=== PATIENT | female | born 1965 | race Caucasian/White ===

== ENCOUNTER 2025-04-06 16:21 | Emergency (ER) | payer BC, SELFPAY ==
--- OUTSIDE RECORDS SUMMARY | 2022-01-13 23:30 | XMS_ITS | Continuity of Care Document ---
Author Organization [facility] Address [address] [address] [place] [address] Phone Care Team Providers Care [place] Measurer Name Role Phone No Information Unavailable Unavailable Allergies, Adverse Reactions, Alerts Substance Reaction Status Criticality Sulfa (Sulfonamide Antibiotics) hives Active No Information Medications Medication Instructions Dosage Effective Dates (start - stop) Status Comments Benadryl 25 mg capsule take 1 capsule by oral route every 4 - 6 hours as needed 25 MG - Active Detrol LA 4 mg 24 hr Cap take 1 capsule (4MG) by oral route every day - Active Procedures Procedure Date Adenoma(s), Other Neoplasm Detected Duri ng Screen Colonoscopy Flex; W/remov Les- 17 Level Iv-surg Path Gross/micro 17 Colonoscopy Flex; Dx (sep Pro) 11 Advance Directives Directive Yes / No Effective Date File Name No Information Encounters Encounter Description Practice Location Reason(s) For Visit Diagnoses Date Provider Providers Copied on Encounter [facility], [address] [address], [place], [id number], tel:[phone] No Information Jan- 2 No Information [facility], [address] [address], [place], [id number], tel:[phone] [facility] Benign colon polypPersonal history of colonic polypsEncounter for screening for malignant neoplasm of colonBenign neoplasm of sigmoid colonPersonal history of colonic polyps 7 Ephraim Knapp. [address], [id number], [place]. tel:[phone] Referring Provider: Aline Knott MD, [address] [place], [address]. tel:[phone] [facility], [address] [address], [place], [place], [id number], tel:[phone] [facility] Personal History Colon PolypsColon Cancer ScreeningHemorr hoids NosPersonal History Colon Polyps Jaden Davis. [address], [id number], [place]. tel:[phone] Family History Family Member Type Diagnosis Age At Onset Mother Problem (finding) Alive and well Father Problem (finding) Alive and well Sister Problem (finding) Alive and well Brother Problem (finding) Alive and well Father Problem (finding) prostate cancer Payers Payer name Insurance type Covered libertarian ID Authoriza tion(s) No Information Social History Type Description Quantity Date Captured Comments Sex Female Smoking Status No Information Chief Complaint And Reason For Visit No Information Reason For Referral Reason For Referral No Information History Of Present Illness Encounter Date Complaint History Of Prese nt Illness No Information Functional Status Date Functional Assessmen t No Information Instructions Date Instruction Additional Infor mation Colon Cancer Prevention Related to Benign colon polyp Colon Polyps Related to Benig n colon polyp Assessments Type Assessment Date No Information Patient Care Teams Name Effective Dates (start - stop) Status Members No Information
[2025-04-06] VITALS (20 sets, daily range): BP systolic 135–160; BP diastolic 80–95; PULSE 80–92; RESP 11–47; TEMP 36.3; O2SAT 96–99; BMI 24.8
--- NOTE | 2025-04-06 17:07 | ED.GENADULT ---
HPI - General Adult General Chief complaint: Dizziness/Vertigo Stated complaint: Vertigo, high heart rate, vomiting Time Seen by Provider: 04/06/25 16:26 Source: patient Mode of arrival: ambulatory Limitations: no limitations History of Present Illness HPI narrative: 60-year-old female presenting today with an episode of dizziness and high heart rate. Patient states that she was sitting at home when all of a sudden her pulse went up into the 130s and she felt dizzy. She denies the room spinning around her. She stated that she felt off balance and felt very nauseated. She vomited times once. This occurred approximately 3-1/2 hours ago. She just has not gotten back to normal since. She does state that the dizziness has subsided and she is no longer vomiting. But she is just not back to her normal self. Patient states that she does have frequent palpitations where her pulse goes up and down. She states that she has had heart monitors and cardiac workups in the past. She also states that she often will wake up in the middle of the night with the same feeling that her head feels very heavy just as it did today. She states that she had an MRI approximately 5 years ago because of this. Patient denies recent illness. No changes in her vision. She has a mild headache. No ringing in her ears. No chest pain or shortness of breath. Patient states that she had a breast lumpectomy many years ago. Does not take any medications. Related Data Home Medications ?Medication ?Instructions ?Recorded ?Confirmed No Known Home Medications 04/06/25 04/06/25 Allergies Allergy/AdvReac Type Severity Reaction Status Date / Time Sulfa (Sulfonamide Allergy Unknown Verified 04/06/25 17:54 Antibiotics) Review of Systems Status of ROS: Reports: 10 or more systems reviewed and unremarkable except as noted in History and below [facility] Social History Smoking Status: Never smoker How often do you have a drink containing alcohol: 2-4 times a month How many standard drinks containing alcohol do you have on a typical day: 1 or 2 AUDIT-C Alcohol total score: 2 Non-prescribed substance use: marijuana (any form) Exam Narrative: Exam Narrative: Well-nourished well-developed patient in no acute distress. Alert and oriented. Answers questions appropriately. Mood and affect are appropriate. Thoughts are goal oriented and rational. No tangential or magical thinking noted. Patient speaks in full sentences without needing to catch her breath. HEENT: Normocephalic atraumatic. Pupils are equally round reactive to light. Extraocular muscles are intact. Conjunctivae are moist without any icterus noted. Moist mucous membranes. Posterior pharynx is normal. Neck is soft. Cardiovascular: Heart is regular rate and rhythm S1 and S2 are present without any murmurs. Lungs: Clear to auscultation bilaterally no wheezes rhonchi or rales are appreciated. Patient takes deep breaths without any discomfort. Abdomen: Soft and nontender nondistended with normal bowel sounds. Extremities: Bilateral lower extremities are without edema. Skin: Well perfused without any obvious rashes. Strength is 5/5 of the upper and lower extremities, both proximal and distal muscle groups. Reflexes are 2+ and symmetric at the knees. Romberg sign is negative. Cranial nerves 3-12 are normal. [id number] is normal. There is no nystagmus either horizontally or vertically. Gait is normal. Speech is normal, is not slurred or pressured. There is no word-finding difficulty. Const: Vital Signs, click to edit/add: Vital Signs - 24 hr 04/06/25 16:48 04/06/25 17:05 04/06/25 17:12 Temperature 97.4 F L Pulse Rate 82 Pulse Rate [Pulse Oximeter] 89 Respiratory Rate 12 17 Blood Pressure Blood Pressure [Ri ght Upper Arm] 153/80 H Pulse Oximetry 98 98 98 Oxygen Delivery Me thod Room Air 04/06/25 17:15 04/06/25 17:43 04/06/25 17:45 Temperature Pulse Rate 92 Pulse Rate [Pulse Oximeter] Respiratory Rate 12 19 27 H Blood Pressure Blood Pressure [Ri ght Upper Arm] Pulse Oximetry 96 Oxygen Delivery Me thod 04/06/25 17:48 04/06/25 17:57 04/06/25 18:00 Temperature Pulse Rate 87 83 Pulse Rate [Pulse Oximeter] Respiratory Rate 11 L 47 H Blood Pressure 145/83 H 160/95 H Blood Pressure [Ri ght Upper Arm] Pulse Oximetry 99 99 Oxygen Delivery Me thod 04/06/25 18:02 04/06/25 18:03 04/06/25 18:26 Temperature Pulse Rate 85 84 80 Pulse Rate [Pulse Oximeter] Respiratory Rate 20 15 Blood Pressure 146/81 H Blood Pressure [Ri ght Upper Arm] Pulse Oximetry 99 99 98 Oxygen Delivery Me thod 04/06/25 18:30 04/06/25 18:45 04/06/25 18:47 Temperature Pulse Rate 82 84 Pulse Rate [Pulse Oximeter] Respiratory Rate 22 16 Blood Pressure 135/84 Blood Pressure [Ri ght Upper Arm] Pulse Oximetry 98 98 Oxygen Delivery Me thod Course Course ED Course: Differential diagnosis at this time includes a typical vestibular migraines, cardiac arrhythmias causing dizziness. Much less likely TIA and stroke. Given my very low suspicion that this is a stroke and the fact that the patient has a normal physical exam, I did call off the stroke code after her physical examination. Consulted with Dr. Ewing, Stroke Neurology at [facility] who is in agreement that this likely represents an atypial vestibular migraine. At this time she does recommend the CT and had a neck CTA to be certain to rule out any vascular cause of her symptoms. IV is established and patient given a L of normal saline. Labs were drawn. Labs unremarkable. Head CT was unremarkable. CT angio head and neck unremarkable. EKG, read by me, shows normal sinus rhythm with a prolonged QT at 492. Pulse 85. Normal QRS and MD intervals. Patient was feeling much better after fluids. Blood pressure came down to 142/79. Repeat troponin normal, repeat EKG, read by me, was unchanged. Vital Signs Vital signs: Initial Vital Signs Temperature 97.4 F L 04/06/25 16:48 Temperature Source Temporal Artery Scan 04/06/25 16:48 Pulse Rate 89 04/06/25 16:48 Respiratory Rate 12 04/06/25 16:48 Blood Pressure 153/80 H 04/06/25 16:48 Blood Pressure Mean 104 04/06/25 16:48 Blood Pressure Position Sitting 04/06/25 16:48 Pulse Oximetry 98 04/06/25 16:48 Oxygen Delivery Method Room Air 04/06/25 16:48 Vital Signs Temperature 97.4 F L 04/06/25 16:48 Pulse Rate 89 04/06/25 16:48 Respiratory Rate 12 04/06/25 16:48 Blood Pressure 153/80 H 04/06/25 16:48 Pulse Oximetry 98 04/06/25 16:48 Oxygen Delivery Method Room Air 04/06/25 16:48 Temperature 97.4 F L 04/06/25 16:48 Pulse Rate 84 04/06/25 18:47 Respiratory Rate 16 04/06/25 18:47 Blood Pressure 135/84 04/06/25 18:47 Pulse Oximetry 98 04/06/25 18:47 Oxygen Delivery Method Room Air 04/06/25 16:48 Medications Administered Medications: Discontinued Medications Generic Name Dose Route Start Last Admin Trade Name Freq PRN Reason Stop Dose Admin Sodium Chloride 1,000 mls @ 1,000 mls/hr 04/06/25 17:15 04/06/25 19:08 0.9 % Sodium Chloride 1000 Ml IV 04/06/25 18:14 Infused .Q1H SANTIAGO Infusion Medical Decision Making MDM Narrative Medical decision making narrative: 60-year-old female presenting with palpitations, episode of dizziness and vomiting. Now resolved. Differentials includes atypical vestibular migraine, arrhythmia causing hypoxia to the brain, TIA. Without chest pain or shortness of breath and with many similar episodes and workup in the past, I do not think that this is an acute coronary syndrome. Recommend outpatient follow-up. Lab Data Lab results reviewed: Yes I reviewed the patient's lab results Labs: Lab Results 04/06/25 04/06/25 04/06/25 Range/Units 17:15 17:25 18:40 WBC 6.92 (4.50-11.00) K/uL RBC 4.21 (4.00-5.20) m/uL Hgb 13.0 (12.0-16.0) gm/dL Hct 38.6 (33.0-51.0) % MCV 92 (80-100) fL MCH 31 (26-34) pg MCHC 34 (32-36) gm/dL RDW Coeff of Flower 12.0 (11.5-15.5) % Plt Count 268 (140-440) K/uL Neut % (Auto) 84.4 H (42.0-72.0) % Lymph % (Auto) 10.4 L (20-44) % Dukes % (Auto) 3.9 (0.0-11.0) % Eos % (Auto) 0.6 (0.0-7.0) % Baso % (Auto) 0.6 (0.0-3.0) % Neut # (Auto) 5.80 (1.7-7.0) K/uL Lymph # (Auto) 0.70 L (0.90-2.90) K/uL Dukes # (Auto) 0.30 (0.00-0.90) K/UL Eos # (Auto) 0.04 (0.00-0.50) K/uL Baso # (Auto) 0.04 (0.00-0.30) K/uL Abs Immat Gran (auto) 0.01 (0.00-0.30) K/uL Imm/Tot Granulo (auto) 0.1 % Sodium 141 (135-149) mmol/L Potassium 3.8 (3.6-5.1) mmol/L Chloride 107 (96-114) mmol/L Carbon Dioxide 27 (20-32) mmol/L Anion Gap 7 (7-15) mEq/L BUN 14 (7-30) mg/dL Creatinine 0.8 (0.5-1.5) mg/dL Estimated Creat Clear 48.25 Estimated GFR 83 ml/min Glucose 114 (60-115) mg/dL Lactate 1.1 (0.5-1.9) mmol/L Calcium 9.5 (8.4-10.6) mg/dL Magnesium 2.1 (1.5-2.6) mg/dL Total Bilirubin 0.6 (0.1-1.5) mg/dL Direct Bilirubin 0.3 (0.0-0.5) mg/dL AST 30 (12-35) U/L ALT 18 (4-35) U/L Alkaline Phosphatase 71 (40-150) U/L Troponin I < 0.01 (0.01-0.04) ng/mL C-Reactive Protein < 0.5 L (0.5-1.0) mg/dL Total Protein 7.3 (6.0-8.3) g/dL Albumin 4.4 (3.3-5.0) g/dL TSH 0.676 (0.270-4.20) uIU/mL Urine Color Light yellow (Yellow) Urine Appearance Clear (Clear) Urine pH 7.5 (5.0-8.5) Ur Specific Drake 1.010 (1.000-1.030) Urine Protein Negative (Negative) Urine Glucose (UA) Negative (Negative) Urine Ketones 1+ A (Negative) Urine Blood Trace-intact A (Negative) Urine Nitrite Negative (Negative) Urine Bilirubin Negative (Negative) Urine Urobilinogen 0.2 (0.2-1.0) Ur Leukocyte Esterase Negative (Negative) Urine RBC 2-5 A (0-2) Urine WBC 0-2 (0-5) Ur Squamous Epith Cells None (None-Few) Urine Bacteria None (None) POC Creatinine 0.8 (0.6-1.3) mg/dl POC Troponin I (0.01-0.04) ng/ml 04/06/25 Range/Units 19:14 WBC (4.50-11.00) K/uL RBC (4.00-5.20) m/uL Hgb (12.0-16.0) gm/dL Hct (33.0-51.0) % MCV (80-100) fL MCH (26-34) pg MCHC (32-36) gm/dL RDW Coeff of Flower (11.5-15.5) % Plt Count (140-440) K/uL Neut % (Auto) (42.0-72.0) % Lymph % (Auto) (20-44) % Dukes % (Auto) (0.0-11.0) % Eos % (Auto) (0.0-7.0) % Baso % (Auto) (0.0-3.0) % Neut # (Auto) (1.7-7.0) K/uL Lymph # (Auto) (0.90-2.90) K/uL Dukes # (Auto) (0.00-0.90) K/UL Eos # (Auto) (0.00-0.50) K/uL Baso # (Auto) (0.00-0.30) K/uL Abs Immat Gran (auto) (0.00-0.30) K/uL Imm/Tot Granulo (auto) % Sodium (135-149) mmol/L Potassium (3.6-5.1) mmol/L Chloride (96-114) mmol/L Carbon Dioxide (20-32) mmol/L Anion Gap (7-15) mEq/L BUN (7-30) mg/dL Creatinine (0.5-1.5) mg/dL Estimated Creat Clear Estimated GFR ml/min Glucose (60-115) mg/dL Lactate (0.5-1.9) mmol/L Calcium (8.4-10.6) mg/dL Magnesium (1.5-2.6) mg/dL Total Bilirubin (0.1-1.5) mg/dL Direct Bilirubin (0.0-0.5) mg/dL AST (12-35) U/L ALT (4-35) U/L Alkaline Phosphatase (40-150) U/L Troponin I (0.01-0.04) ng/mL C-Reactive Protein (0.5-1.0) mg/dL Total Protein (6.0-8.3) g/dL Albumin (3.3-5.0) g/dL TSH (0.270-4.20) uIU/mL Urine Color (Yellow) Urine Appearance (Clear) Urine pH (5.0-8.5) Ur Specific Drake (1.000-1.030) Urine Protein (Negative) Urine Glucose (UA) (Negative) Urine Ketones (Negative) Urine Blood (Negative) Urine Nitrite (Negative) Urine Bilirubin (Negative) Urine Urobilinogen (0.2-1.0) Ur Leukocyte Esterase (Negative) Urine RBC (0-2) Urine WBC (0-5) Ur Squamous Epith Cells (None-Few) Urine Bacteria (None) POC Creatinine (0.6-1.3) mg/dl POC Troponin I 0.00 L (0.01-0.04) ng/ml Imaging Data CT scan - head: Attestation: I have reviewed the pertinent imaging results. Radiologist's impression: TECHNIQUE: Non-contrast CT of the head is submitted. No comparisons. FINDINGS: The ventricles, sulci and gyri are of normal size, shape and contour. Midline structures are centrally located. No convincing evidence of intra- or extra-axial fluid collections. Prominent perivascular space within the inferior left basal ganglia. IMPRESSION: 1. No radiographic evidence of acute intracranial abnormalities. 2. Preliminary results were called to Dr. Tan [address] angio head: Attestation: I have reviewed the pertinent imaging results. Radiologist's impression: TECHNIQUE: Standard helical CT image acquisition through the intracranial circulation following intravenous administration of contrast material with bolus tracking. 2D and 3D MIP images for post-processing were performed and interpreted on an independent workstation and 3D images were permanently archived. COMPARISON: CT same day. FINDINGS: There is no cerebral aneurysm or large vessel occlusion. The right internal carotid artery is normal. The right middle cerebral artery and its branches are normal. The right anterior cerebral artery and its branches are normal. The left internal carotid artery is normal. The left middle cerebral artery and its branches are normal. The left anterior cerebral artery and its branches are normal. The anterior communicating artery is well visualized and appears normal. The right vertebral artery and PICA are normal. The left vertebral artery and PICA are normal. The left vertebral artery is dominant. The basilar artery is patent and appears normal. The right posterior cerebral artery is normal. The left posterior cerebral artery is normal. The visualized venous structures are patent. IMPRESSION: Patent proximal intracranial vasculature without intracranial aneurysms. CT angio neck: Attestation: I have reviewed the pertinent imaging results. Radiologist's impression: TECHNIQUE: Standard helical CT image acquisition of the neck up to the skull base after bolus intravenous contrast enhancement. 2D and 3D MIP images for post-processing were performed and interpreted on an independent workstation and 3D images were permanently archived. COMPARISON: CT same day. FINDINGS: The origins of the great vessels from the aortic arch are patent. The origin of the right vertebral artery is patent. The origin of the left vertebral artery is patent. The common carotid arteries are patent. There is no stenosis at the origin of the right internal carotid artery. There is no stenosis at the origin of the left internal carotid artery. The rest of the cervical segments of the internal carotid arteries are patent up to the skull base. The left vertebral artery is dominant. The cervical segments of the vertebral arteries are patent up to the skull base. The visualized lung apices are unremarkable. The thyroid gland is unremarkable. The soft tissues of the neck are unremarkable. There are degenerative changes in the cervical spine. IMPRESSION: Patent cervical vasculature. ECG Data Attestation: I personally reviewed and interpreted this ECG as follows: Discharge Plan Discharge Clinical Impression: Dizziness Patient Disposition: Home, Self-Care Condition: Improved Additional Instructions: Recommend follow-up with your primary care team. Things to consider would include atypical vestibular migraine headache causing your symptoms. Your EKG you also had a prolonged QT-this is nothing to be concerned about, however you should discuss this with her primary care provider. Will be sent home with a copy of your EKG today to show your doctor. Prescriptions: No Action No Known Home Medications Follow Up/Referrals: Provider,Not a Local [Primary Care Provider, Family Practice] Stand Alone Forms: [employer]-[facility] Info Instructions
--- NOTE | 2025-04-06 17:12 | CRLHL7_ITS ---
For Patients: As a result of the Century Cures Act, medical imaging exams and procedure reports are released immediately into your electronic medical record. You may view this report before your referring provider. If you have questions, please contact your health care provider. INDICATION: Hypertensive. Dizziness TECHNIQUE: Non-contrast CT of the head is submitted. No comparisons. FINDINGS: The ventricles, sulci and gyri are of normal size, shape and contour. Midline structures are centrally located. No convincing evidence of intra- or extra-axial fluid collections. Prominent perivascular space within the inferior left basal ganglia. IMPRESSION: 1. No radiographic evidence of acute intracranial abnormalities. 2. Preliminary results were called to Dr. Tan 1753 hours Please note that all CT scans at this facility use dose modulation, iterative reconstruction, and/or weight-based dosing when appropriate to reduce radiation dose to as low as reasonably achievable. Dictated by Jimbo Chaudhary MD @ 04/06/2025 5:54:10 PM (Electronically Signed)
--- NOTE | 2025-04-06 17:12 | CRLHL7_ITS ---
For Patients: As a result of the Century Cures Act, medical imaging exams and procedure reports are released immediately into your electronic medical record. You may view this report before your referring provider. If you have questions, please contact your health care provider. DATE: 04/06/2025 CLINICAL HISTORY: Patient with dizziness, hypertension, nausea and vomiting. TECHNIQUE: Standard helical CT image acquisition of the neck up to the skull base after bolus intravenous contrast enhancement. 2D and 3D MIP images for post-processing were performed and interpreted on an independent workstation and 3D images were permanently archived. COMPARISON: CT same day. FINDINGS: The origins of the great vessels from the aortic arch are patent. The origin of the right vertebral artery is patent. The origin of the left vertebral artery is patent. The common carotid arteries are patent. There is no stenosis at the origin of the right internal carotid artery. There is no stenosis at the origin of the left internal carotid artery. The rest of the cervical segments of the internal carotid arteries are patent up to the skull base. The left vertebral artery is dominant. The cervical segments of the vertebral arteries are patent up to the skull base. The visualized lung apices are unremarkable. The thyroid gland is unremarkable. The soft tissues of the neck are unremarkable. There are degenerative changes in the cervical spine. IMPRESSION: Patent cervical vasculature. Please note that all CT scans at this facility use dose modulation, iterative reconstruction, and/or weight-based dosing when appropriate to reduce radiation dose to as low as reasonably achievable. Dictated by Angie Aceves MD @ 04/06/2025 7:30:46 PM (Electronically Signed)
--- NOTE | 2025-04-06 17:12 | CRLHL7_ITS ---
For Patients: As a result of the Century Cures Act, medical imaging exams and procedure reports are released immediately into your electronic medical record. You may view this report before your referring provider. If you have questions, please contact your health care provider. DATE: 04/06/2025 CLINICAL HISTORY: Patient with dizziness, hypertension, nausea and vomiting. TECHNIQUE: Standard helical CT image acquisition through the intracranial circulation following intravenous administration of contrast material with bolus tracking. 2D and 3D MIP images for post-processing were performed and interpreted on an independent workstation and 3D images were permanently archived. COMPARISON: CT same day. FINDINGS: There is no cerebral aneurysm or large vessel occlusion. The right internal carotid artery is normal. The right middle cerebral artery and its branches are normal. The right anterior cerebral artery and its branches are normal. The left internal carotid artery is normal. The left middle cerebral artery and its branches are normal. The left anterior cerebral artery and its branches are normal. The anterior communicating artery is well visualized and appears normal. The right vertebral artery and PICA are normal. The left vertebral artery and PICA are normal. The left vertebral artery is dominant. The basilar artery is patent and appears normal. The right posterior cerebral artery is normal. The left posterior cerebral artery is normal. The visualized venous structures are patent. IMPRESSION: Patent proximal intracranial vasculature without intracranial aneurysms. Please note that all CT scans at this facility use dose modulation, iterative reconstruction, and/or weight-based dosing when appropriate to reduce radiation dose to as low as reasonably achievable. Dictated by Angie Aceves MD @ 04/06/2025 7:32:06 PM (Electronically Signed)
[2025-04-06 17:25] LABS: Basophils Absolute Auto 0.04 K/uL (0.00-0.30); Basophils Percent Auto 0.6 % (0.0-3.0); Eosinophils Absolute Auto 0.04 K/uL (0.00-0.50); Eosinophils Percent Auto 0.6 % (0.0-7.0); Hematocrit 38.6 % (33.0-51.0); Immature Granulocytes Abs Auto 0.01 K/uL (0.00-0.30); Immature Granulocytes Pct Auto 0.1 %; Lactate* 1.1 mmol/L (0.5-1.9); Lymphocytes Percent Auto 10.4 % (20-44); Mean Corpuscular HGB Conc 34 gm/dL (32-36); Mean Corpuscular Hemoglobin 31 pg (26-34); Mean Corpuscular Volume 92 fL (80-100); Monocytes Percent Auto 3.9 % (0.0-11.0); Neutrophils Percent Auto 84.4 % (42.0-72.0); Platelet Count* 268 K/uL (140-440); Red Blood Count 4.21 m/uL (4.00-5.20); White Blood Count* 6.92 K/uL (4.50-11.00)
[2025-04-06 17:26] LABS: Slide Review Reflex No
[2025-04-06 17:26] LABS: Creatinine, Point-of-Care* 0.8 mg/dl (0.6-1.3)
--- OUTSIDE RECORDS SUMMARY | 2025-04-06 17:39 | XMS_ITS | Clinical Summary ---
Author Organization [facility] Address [address] [place] [id number] Care Team Providers Care Talent Management Specialist Name Role Phone Aline Molina MD Primary Care Prov ider Allergies Active Allergy Reactions Criticality Noted Date Comments Nitrofurantoin Monohyd/M-Cryst Nausea And Vomiting 04/06/2017 Sulfa (Sulfonamide Antibiotics) *Unknown - Pt Doesn't Remember 02/13/2009 Medications loratadine-pseu doephedrine (CLARITIN-D 24 HOUR) 10-240 mg 24hr tablet Take 1 tablet. by mouth once daily if needed for Allergy Symptoms. 0 8 Active cimetidine (TAGAMET) 200 mg tablet Take 200 mg by mouth 4 times daily if needed. 0 8 Active ondansetron (ZOFRAN) 4 mg tabletIndicatio ns:Nausea and vomiting, unspecified vomiting type Take 1 Tablet (4 mg) by mouth every 8 hours if needed for Nausea/Vomiting. 20 Tablet 2 Active ibuprofen (ADVIL; MOTRIN) 200 mg cap Take 200 mg by mouth four times daily 6 hours apart. PRN for pain Active acetaminophen (TYLENOL EXTRA STRGTH) 500 mg tablet Take 1,000 mg by mouth four times daily 6 hours apart. Max acetaminophen dose: 4000mg in 24 hrs. Active estradioL (ESTRACE) 0.01% (0.1 mg/g) vaginal creamIndication s:Atrophic vaginitis Insert 2 grams per vagina qhs for one week then taper as instructed in clinic. 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 06/30/2018 Dizziness 06/30/2018 History of vertigo 06/30/2018 Hypermetropia 11/08/2014 Presbyopia 11/08/2014 Personal history of colonic polyps 07/31/2010 Overview (07/31/2010): Hematochezia 04/2006 sigmoid adenomatous polyp 05/2007 sigmoid polyp 08/2008 gastric polyps and esophagitis by EGD 08/2008 3 rectosigmoid polyps repeat 2 yr Acne 07/31/2010 Low back pain 07/31/2010 Overview (07/31/2010): Physicians neck and back 2000 Unspecified urinary incontinence 02/13/2009 Routine general medical exam ination at a health care facility 02/13/2009 Overview (02/13/2009): Mammogram 02/2008 Encounters Date Type Department Care Team Description 02/07/2025 1:30 PM CDT Office Visit [facility] [address] [place] [id number] Jony Jeong, [facility] Eye Problem (RX check ) 02/07/2025 Travel from Last 3 Months Immunizations Immunization Administration Dates Next Due AMB Influenza, IIV3 (Age >=3 years)(Flu Clinic Only) 10/14/2009 AMB Influenza, IIV4 PF (=>6 mos Flulaval,Fluzone Fluarix)(Flu Clinic Only) 08/16/2019 COVID-19 vaccine (Moderna Jt robert 50mcg/0.25mL) PF, MDV 06/28/2022,09/17/2021 COVID-19 vaccine (Pfizer-Bio NTech 30mcg/0.3mL) PF, MDV 02/27/2021,02/06/2021 Hepatitis A (Adult) 07/23/2004 Hepatitis B, Unspecified 11/08/2002 Influenza A (H1N1), Live Intranasal 10/16/2009 Influenza Virus, Unspecified 09/16/2021 Influenza, IIV3 (Age 6-35 mos) 10/14/2009 Influenza, IIV3 (Age >=3 years) 08/20/20 15,12/13/2013,08/24/2012,2010,09/20/2008,08/25/2007,09/12/2006,1 12/28/2004 Influenza, IIV4 09/27/2022,,10/22/2020,2014,08/19/2014 Influenza,CCIIV4 PRESERV FREE 12/20/2017 Td (Age >=7 Years) 04/29/2006,11/07/2002 Tdap 06/22/2017 Zoster (Shingrix-RZV, recombinant) 09/17/2021 Family History Medical History Relation Name Comments Hypertension Father Heart Disease Maternal Grandfather cab Heart Disease Paternal Uncle chf Cancer-breast No Family History Cancer-ovarian No Family History Relation Name Status Comments Brother 1 Alive Brother 2 Alive Father Alive Maternal Grandfather Mother Alive Paternal Uncle Sister 1 Alive Sister 2 Alive Social History Tobacco Use Types Packs/Day Years Used Date Smoking Tobacco: Never Passive Smoke Exposure: Never Smokeless Tobacco: Never Tobacco Cessation:Counseling Given: Not Answered Alcohol Use Standard Drinks/Week Comments Yes 0 (1 standard drink = 0.6 oz pur e alcohol) 0-2 x a week PHQ-2 Answer Date Recorded PHQ-2 TOTAL SCORE 1 09/17/2021 Financial Resource Strain Answer Date R ecorded Difficulty of Paying Living Expenses Not on file 11/07/2021 Difficulty of Paying Living Expenses Not on file 11/07/2021 Comments No Sex and Gender Information Value Date Recorded Sex Assigned at Not on file Legal Sex Female 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 Gender Identity Not on file Sexual Orientation Not on file Occupation Industry Job Start Date Job End Date Not on file Not on file Not on file Not on file Obstetrics History Para Term AB IAB SAB Ectopic Multiple Livin g Live Births 1 0 0 0 1 1 0 0 0 0 Date Outcome GA Total Labor Labor/2nd/3rd Weight Sex Type Anes PTL Meeta A1 A5 Name Clin IAB Last Filed Vital Signs Vital Sign Reading Time Taken Comments Blood Pressure 131/70 10/24/2023 12:31 PM COMMERCIAL BAKING TEACHER Pulse 81 10/24/2023 12:31 PM COMMERCIAL BAKING TEACHER Temperature 36.7 C (98.1 F) 10/24/2023 12:31 PM COMMERCIAL BAKING TEACHER Respiratory Rate 16 10/24/2023 12:31 PM COMMERCIAL BAKING TEACHER Oxygen Saturation 100% 10/24/2023 12:31 PM COMMERCIAL BAKING TEACHER Inhaled Oxygen Concentration - - Weight 69.9 kg (154 lb) 10/24/2023 12:31 PM COMMERCIAL BAKING TEACHER Height 157.5 cm (5' 2) 05/04/2023 9:06 AM CDT Body Mass Index 28.17 05/04/2023 9:06 AM CDT Plan of Treatment Health Maintenance Due Date Last Done Comments HIV for age 15-65 1978 Hepatitis C screening for ag e 18-79 1981 Hepatitis B series for 19+ ( 2 of 3 - 19+ 3-dose series) 12/06/2002 11/08/2002 Pneumococcal series for age 50+ (1 of 1 - PCV) 2013 Zoster (shingles) series for age 50+ (2 of 2) 11/12/2021 09/17/2021 Depression screening for age 12+ 09/17/2022 09/17/2021, 12/19/2020, 01/22/2020 BMI (ht and wt on same day) for age 18+ 05/04/2024 05/04/2023, 09/17/2021, 03/11/2021, Additional history exists Mammogram for age 45-75 05/21/2025 05/21/20, 05/19/2023, 05/17/2023, Additional history exists Influenza Vaccine (Season Ended) 2025 09/27/2022, 09/16/2021, 09/16/2021, Additional history exists Lipids for age 45-75 09/17/2026 09/17/2021, 12/21/19 14 Pap test for age 21-65 09/17/2026 , 09/17/2021, 12/13/2013, Additional history exists Tetanus booster 06/22/2027 06/22/2017, 06/01/2006, 04/29/2006, Additional history exists Colonoscopy through age 75 06/30/202906/30, 01/11/2017, 04/26/2011 RSV vaccine for adults or (1 - 1-dose 75+ series) 2038 Tdap Completed 06/22/2017, 04/29/2006 COVID-19 vaccine series Completed 08/02/20, 06/28/2022, 09/17/2021, Additional history exists Procedures Procedure Name Priority Date/Time Associated Diagnosis Comments XR MAMMO ALISON BILAT SCREEN Routine 05/21/2024 1:14 PM CDT Visit for screening mammogram COLONOSCOPY 06/30/2022 8:12 AM CDT LIPID PANEL W REFLEX MEASURED LDL Routine 09/17/2021 10:52 AM COMMERCIAL BAKING TEACHER Screening for lipid disorders HPV HIGH RISK Routine 09/17/2021 9:50 AM COMMERCIAL BAKING TEACHER Screening for cervical cancer from Last 3 Months or Most Recently Relevant to Health Maintenance Results * XR MAMMO ALISON BILAT SCREEN (05/21/2024 1:14 PM CDT) Anatomical Region Laterality Modality BREASTS, Breast Left, Breast Right Bilateral Mammography 05/21/2024 1:14 PM CDT Impressions 05/21/2024 1:30 PM CDT No concerning mammographic findings. Recommend routine annual screening mammography. When performed, computer-aided detection was used in the interpretation of this study. ACR BI-RADS Category 2: Benign Finding(s). A lay language report of this examination will be mailed to the patient. Narrative 05/21/2024 1:30 PM CDT For Patients: As a result of the 21st Century Cures Act, medical imaging exams and procedure reports are released immediately into your electronic medical record. You may view this report before your referring provider. If you have questions, please contact your health care provider. EXAM: XR MAMMO ALISON BILAT SCREEN LOCATION: [facility] DATE: 05/21/2024 INDICATION: Asymptomatic. Screening Mammogram. COMPARISON: May 19, 2023, May 17, 2023 and January 27, 2022. BREAST DENSITY: The breasts are heterogeneously dense, which may obscure small masses. FINDINGS: Tomosynthesis craniocaudal and mediolateral oblique views were obtained. There is no evidence for spiculated masses, architectural distortion, asymmetry or suspicious calcifications. Calcifications in the left breast in the upper-outer quadrant are stable and benign. The asymmetry seen on previous exam is also unchanged. Procedure Note Jono Mg MD - 05/21/2024 For Patients: As a result of the Cures Act, medical imagingexams and procedure reports are released immediately into your electronicmedical record. You may view this report before your referring provider.If you have questions, please contact your health care provider. EXAM: XR MAMMO ALISON BILAT SCREEN LOCATION: [facility] DATE: 05/21/2024 INDICATION: Asymptomatic. Screening Mammogram. COMPARISON: May 19, 2023, May 17, 2023 and January 27, 2022. BREAST DENSITY: The breasts are heterogeneously dense, which may obscuresmall masses. FINDINGS: Tomosynthesis craniocaudal and mediolateral oblique views wereobtained. There is no evidence for spiculated masses, architecturaldistortion, asymmetry or suspicious calcifications. Calcifications in theleft breast in the upper-outer quadrant are stable and benign. Theasymmetry seen on previous exam is also unchanged. IMPRESSION: No concerning mammographic findings. Recommend routine annual screeningmammography. When performed, computer-aided detection was used in the interpretation ofthis study. ACR BI-RADS Category 2: Benign Finding(s). A lay language report of this examination will be mailed to the patient. Aline Ceballos MD MAMMO Fi nal Result * COLONOSCOPY (06/30/2022 8:12 AM CDT) 06/30/2022 8:12 AM CDT Narrative Transcriptions Kell Marcus MD - 06/30/2022 8:29 AM CDT Patient Name: Annelise Swann Procedure Date: 06/30/2022 Gender: Female Date of : 1965 Admit Type: Ambulatory Procedure: Colonoscopy Proceduralist: Kell Marcus MD Referring MD: Aline Ceballos Indications/Pre-Op Diagnosis: Screening for malignant neoplasm in [facility], High risk colon cancer surveillance:Personal history of colonic polyps, Last colonoscopy5 years ago Medications: Midazolam 4 mg IV, Fentanyl 150 microgramsIV, Oxygen per cannula, Ondansetron 4 mg IV Procedure Description: The procedure, indications, potential complications, (bleeding, perforation, infection, adverse medication reaction, missed lesionsor polyps) and alternatives available were explained to the patient, who appeared to understand and indicated this. Opportunity for questionswas provided and informed consent obtained. The Colonoscope was introduced through the anus and advanced to the cecum, identified by appendiceal orifice and ileocecal valve. The colonoscopy was performed without difficulty. The patient toleratedthe procedure well. The quality of the bowel preparation was evaluatedusing the BBPS ([place] Bowel Preparation Scale) with scores of: Right Colon= 3 (entire mucosa seen well with no residual staining, small fragmentsof stool or opaque liquid), Transverse Colon = 3 (entire mucosa seenwell with no residual staining, small fragments of stool or opaque liquid) and Left Colon = 3 (entire mucosa seen well with no residualstaining, small fragments of stool or opaque liquid). The total BBPS scoreequals 9. The bowel preparation used was GoLYTELY via split doseinstruction. Scope withdrawal time was 7 minutes. The total duration of theprocedure was 14 minutes. The ileocecal valve, appendiceal orifice, and rectum were photographed. The scope was advanced using CO2 insufflation. Complications: No immediate complications. Estimated Blood Loss & Specimen: Estimated blood loss: none. Specimen collected: Yes and sent to Laboratory Findings: A 4 mm polyp was found in the sigmoid colon. The polyp was semi-pedunculated. The polyp was removed with a cold snare. Resection and retrieval were complete. A few diverticula were found in the sigmoid colon. The exam was otherwise without abnormality. The retroflexed view of the distal rectum and anal verge was normaland showed no anal or rectal abnormalities. Impressions/Post-Op Diagnosis: - One 4 mm polyp in the sigmoid colon, removed with a cold snare. Resected and retrieved. - Diverticulosis in the sigmoid colon. - The examination was otherwise normal. - The distal rectum and anal verge are normal on retroflexion view. Recommendation: - Await pathology results. - Patient has a contact number available for emergencies. The signsand symptoms of potential delayed complications were discussed with the patient. Return to normal activities tomorrow. Written discharge instructions were provided to the patient. Moderate Sedation: Moderate (conscious) sedation was administered by the endoscopy nurse and supervised by the endoscopist. The following parameters were monitored: oxygen saturation, heart rate, respiratory rate, adequacyof pulmonary ventilation and reponse to care. Please refer to the patient's medical record flowsheets for moderate sedation details. Kell Marcus MD 06/30/2022 8:29:09 AM This report has been signed electronically. Note Initiated On: 06/30/2022 8:12 AM Scope Withdrawal Time 0 hours 7 minutes 16 seconds Total Procedure Duration Time 0 hours 14 minutes 29 seconds us Kell Marcus MD PROCEDURE ORD Fi nal Result * LIPID PANEL W REFLEX MEASURED LDL [[id number]] (09/17/2021 10:52 AM COMMERCIAL BAKING TEACHER) CHOLESTEROL,TOTAL 185 100 - 199 mg/dL 09/17/2021 7:05 PM COMMERCIAL BAKING TEACHER [facility] TRIGLYCERIDES 55 <150 mg/dL 09/17/2021 7:05 PM COMMERCIAL BAKING TEACHER [facility] HDL CHOLESTEROL 59 >40 mg/dL 7:05 PM COMMERCIAL BAKING TEACHER [facility] NON-HDL CHOLESTEROL 126 <145 mg/dl 09/17/2021 7:05 PM COMMERCIAL BAKING TEACHER [facility] CHOL/HDL RATIO 3.14 <4.50 09/17/2021 7:05 PM COMMERCIAL BAKING TEACHER [facility] LDL CHOLESTEROL 115 <=130 mg/dL 09/17/2021 7:05 PM COMMERCIAL BAKING TEACHER [facility] VLDL CHOLESTEROL 11 <=30 mg/dL 09/17/2021 7:05 PM COMMERCIAL BAKING TEACHER [facility] PROVIDER ORDERED STATUS RANDOM 09/17/2021 7:05 PM COMMERCIAL BAKING TEACHER [facility] Blood BLOOD SPECIMEN / Unknown Butterfly / Unknown 09/17/2021 10:52 AM COMMERCIAL BAKING TEACHER 09/17/2021 10:52 AM COMMERCIAL BAKING TEACHER Akanksha Navas MD CHEMISTRY Final Result [facility] [address] [place] [address], * HPV HIGH RISK (09/17/2021 9:50 AM COMMERCIAL BAKING TEACHER) TYPE 16 Negative Negative 09/21/2021 3:57 PM COMMERCIAL BAKING TEACHER [facility] TYPE 18 Negative Negative 09/21/2021 3:57 PM COMMERCIAL BAKING TEACHER [facility] OTHER HIGH RISK TYPES Negative Negative 09/21/2021 3:57 PM COMMERCIAL BAKING TEACHER [facility] Other (Cervical) Non-Blood / Unknown 09/17/2021 9:50 AM COMMERCIAL BAKING TEACHER 09/18/2021 10:33 AM COMMERCIAL BAKING TEACHER Narrative [facility] - 09/21/2021 3:57 PM COMMERCIAL BAKING TEACHER HPV types 16, 18, 31, 33, 35, 39, 45, 51, 52, 56, 58, 59, 66 and 68 DNA were undetectable or below the pre-set threshold. Methodology: [employer] 4800 HPV Test Akanksha Navas MD MICROBIOLOGY Final Result [facility] [address] [place] [address], from Last 3 Months or Most Recently Relevant to Health Maintenance [place] [address] [place] [address] [place] [address] [place] [address] ADVANTAGE [facility] [employer] Advance Directives * Full Code (Latest Code Status on File) Date Activated Date Inactivated Comments 06/30/2022 7:13 AM 06/30/2022 11:22 AM Question Answer Comments Code Status Discussion: Discussed Care Teams Talent Management Specialist Relationship Specialty Start Date End Date Aline Molina MD [address] [place] [address] PCP - General Family Practice 07/01/15
[2025-04-06 17:45] LABS: Albumin* 4.4 g/dL (3.3-5.0); Chloride* 107 mmol/L (96-114); Sodium* 141 mmol/L (135-149)
[2025-04-06 17:46] LABS: Potassium* 3.8 mmol/L (3.6-5.1)
[2025-04-06 17:48] LABS: Blood Urea Nitrogen* 14 mg/dL (7-30); Creatinine* 0.8 mg/dL (0.5-1.5); Est. Creatinine Clearance* 48.25; Estimated Glomerular Filt Rate 83 ml/min
[2025-04-06 17:49] LABS: Alanine Aminotransferase* 18 U/L (4-35); Alkaline Phosphatase* 71 U/L (40-150); Anion Gap 7 mEq/L (7-15); Aspartate Amino Transferase* 30 U/L (12-35); Bilirubin Direct* 0.3 mg/dL (0.0-0.5); Bilirubin Total* 0.6 mg/dL (0.1-1.5); Calcium* 9.5 mg/dL (8.4-10.6); Carbon Dioxide* 27 mmol/L (20-32); Glucose* 114 mg/dL (60-115); Magnesium* 2.1 mg/dL (1.5-2.6); Total Protein* 7.3 g/dL (6.0-8.3)
[2025-04-06 17:55] LABS: C Reactive Protein* < 0.5 mg/dL (0.5-1.0)
[2025-04-06] MEDS: 0.9 % SODIUM CHLORIDE 1000 ml 1,000 ML IV (18:01)
[2025-04-06 18:02] LABS: Troponin I* < 0.01 ng/mL (0.01-0.04)
[2025-04-06 18:20] LABS: Thyroid Stimulating Hormone* 0.676 uIU/mL (0.270-4.20)
[2025-04-06 18:48] LABS: Appearance Urine Clear (Clear); Bilirubin Urine Negative (Negative); Blood Urine Trace-intact (Negative); Color Urine Light yellow (Yellow); Glucose Urine Negative (Negative); Ketones Urine 1+ (Negative); Leukocyte Esterase Urine Negative (Negative); Nitrite Urine Negative (Negative); Protein Urine Negative (Negative); Urobilinogen Urine 0.2 (0.2-1.0); pH Urine 7.5 (5.0-8.5)
[2025-04-06 18:58] LABS: WBC Urine 0-2 (0-5)
== END 2025-04-06 20:02 | disposition home or self-care (01) ==
PROVIDERS: Emergency Provider Family Medicine
DX: R42 Dizziness and giddiness (principal); R51.9 Headache, unspecified
CPT/HCPCS: 36415; 70450; 70496; 70498; 80048; 80076; 81001; 82565; 83605; 83735; 84443; 84484; 85025; 86140; 87086; 93005; 94761; 99285; 99291; J7030; Q9967